=== PATIENT | male | born 1995 | race Caucasian/White ===

== ENCOUNTER 2021-12-21 12:58 | Emergency (ER) | payer BC ==
[~2021-12-21] VITALS: Ht 188 cm; Wt 90.9 kg
[2021-12-21 13:14] VITALS: TEMP 98.3
[2021-12-21 13:48] LABS: BASO % 0.4 % (0.0-2.0); EOS % 0.1 % (0.0-4.0); GRAN # 4.9 K/mm3 (1.4-6.5); GRAN % 71.2 % (42.2-75.2); HEMATOCRIT 43.9 % (42.0-52.0); LYMPH # 0.8 K/mm3 (1.2-3.4); LYMPH % 10.9 % (20.0-51.0); MEAN CELL VOLUME 85 fl (80.0-100.0); MEAN CORPUSCULAR HEMOGLOBIN 29 pg (27-31); MEAN CORPUSCULAR HGB CONC 34 g/dl (33.0-37.0); MEAN PLATELET VOLUME 8.9 fl (7.4-10.4); MONO # 1.2 K/mm3 (0.1-0.6); MONO % 17.1 % (1.7-9.3); PLATELET COUNT 232 K/mm3 (130-400); RED BLOOD COUNT 5.16 M/mm3 (4.20-5.60); REDCELL DISTRIBUTION WIDTH-CV 13.2 % (11.5-14.5)
[2021-12-21 14:08] LABS: ALBUMIN 4.4 gm/dL (3.5-5.0); BILIRUBIN,TOTAL 0.4 mg/dL (0.2-1.2); CALCIUM 8.9 mg/dL (8.4-10.2); CREATININE, serum 1.13 mg/dL (0.72-1.25); POTASSIUM 4.2 mmol/L (3.5-4.5); TOTAL PROTEIN 7.3 gm/dL (6.2-8.1)
[2021-12-21 14:46] VITALS: BP 134/80; PULSE 82
== END 2021-12-21 14:58 | disposition home or self-care (01) ==
LOC: COL.ER 12:58
PROVIDERS: Student in an Organized Health Care Education/Training Program
DX: R10.12 Left upper quadrant pain (principal); F17.210 Nicotine dependence, cigarettes, uncomplicated
CPT/HCPCS: Q9967